=== PATIENT | male | born 1950 | race Caucasian/White ===

== ENCOUNTER 2017-10-08 14:30 | Emergency (ER) | payer BC ==
[~2017-10-08] VITALS: Ht 188 cm; Wt 122.5 kg
[~2017-10-08 14:30] MED LIST: ALEVE220 MG PO; ASPIR 8181 MG PO; CALCIUM500 MG PO; CENTRUM SILVER1 EAC2 PO; COLACE100 MG PO; COZAAR 25 MG TA25 M1 PO; DIABETA 5MG TABL5 MG PO; HUMALOG100 UNIT/1 SUBQ; INVOKANA300 MG PO; KLOR-CON 1010 MEQ PO; LANTUS SOL100 UNIT/1 SUBQ; MAGOX 400400 MG PO; METFORMIN HCL500 MG PO; MS CONTIN15 MG PO; NEURONTIN 300300 M1 PO; ONGLYZA5 MG PO; PERCOCET PO; TRAMADOL 50 MG50 MG PO; TRI-BUFFERED A325 M1 PO; TRULICITY1.5 MG/0.5 SUBQ; VITAMIN D-32000 UNIT PO; VITAMIN E400 UNIT PO; XARELTO10 MG PO; ZOCOR20 MG PO
[2017-10-08 15:18] LABS: HEMATOCRIT 34.1 % (42.0-52.0); HEMOGLOBIN 11.6 gm/dL (14.0-18.0); MCH 28.4 pg (26.0-34.0); MCHC 34.1 g/dL (28.0-37.0); MCV 83.4 fL (80.0-100.0); PLATELET COUNT 416 thou/uL (150-400); RBC 4.08 mil/uL (4.50-6.00); RDW 14.5 % (10.5-14.5); WBC 10.5 thou/uL (4.0-11.0)
[2017-10-08 15:19] LABS: MANUAL DIFF YES
[2017-10-08 15:27] LABS: CALCIUM 8.8 mg/dL (8.5-10.1); CREATININE 0.7 mg/dL (0.7-1.3); POTASSIUM 3.7 mmol/L (3.5-5.1)
[2017-10-08 15:44] LABS: ABSOLUTE NEUTROPHILS 8.3 thou/uL (1.4-8.2); METAMYELOCYTES 1 %; NUCLEATED RBCS 1 /100WBC; PLATELET ESTIMATE NORMAL; TOTAL CELL COUNT 100
== END 2017-10-08 17:00 | disposition home or self-care (01) ==
LOC: ER 14:30
PROVIDERS: Physician Assistant
DX: G89.18 Other acute postprocedural pain (principal); M71.22 Synovial cyst of popliteal space [Baker], left knee; E11.9 Type 2 diabetes mellitus without complications; E78.00 Pure hypercholesterolemia, unspecified; I10 Essential (primary) hypertension; Z98.890 Other specified postprocedural states; Z79.4 Long term (current) use of insulin

== ENCOUNTER 2021-07-05 15:13 | Emergency (ER) | payer OTHER ==
[~2021-07-05] VITALS: Ht 185.4 cm; Wt 113.4 kg
[2021-07-05 15:41] LABS: HEMATOCRIT 36.4 % (42.0-52.0); HEMOGLOBIN 12.2 gm/dL (14.0-18.0); MCH 28.4 pg (26.0-34.0); MCHC 33.7 g/dL (28.0-37.0); MCV 84.5 fL (80.0-100.0); RBC 4.31 mil/uL (4.50-6.00); RDW 14.4 % (10.5-14.5); WBC 8.7 thou/uL (4.0-11.0)
[2021-07-05 15:49] LABS: CALCIUM 8.9 mg/dL (8.5-10.1); POTASSIUM 3.8 mmol/L (3.5-5.1)
[2021-07-05] MEDS ORDERED: NORCO5 PO (17:08)
[2021-07-05] MEDS ORDERED: CEPHALEXIN500 MG PO (17:08)
[2021-07-05 17:40] VITALS: BP 175/64
--- NOTE | 2021-07-06 11:34 | EKG ---
[address] [address] [place] [address] ELECTROCARDIOGRAM REPORT Name: AQUILINO HODGSON Room #: [facility]#: [id number] Admission: 07/05/21 Attend Phys: Discharge: 07/05/21 Date of : 52 Report #: [id number] [facility] ED Test Date: 2021-07-05 Test Time: 15:41:44 Pat Name: AQUILINO HODGSON Department: Room: Gender: English Language Learner Tutor: JED : 1950 Requested By: Tawana Beltrán Order Number: [id number] MD: Santiago Moss Measurements Intervals [place] Rate: 89 P: 24 SD: 187 QRS: 18 QRSD: 97 T: 49 QT: 395 QTc: 481 Interpretive Statements Sinus rhythm Low voltage, precordial leads Borderline prolonged QT interval Compared to ECG 09/23/2017 08:29:58 Low QRS voltage now present Electronically Signed On 07-06-2021 11:34:30 CDT by Santiago Moss [email or web address] <ELECTRONICALLY SIGNED> By: Santiago Moss MD 07/06/21 1134 [id number] Santiago Moss MD /[email or web address]
== END 2021-07-05 17:40 | disposition home or self-care (01) ==
LOC: ER 15:13
PROVIDERS: Nurse Practitioner Family
DX: S61.412A Laceration without foreign body of left hand, initial encounter (principal); E11.9 Type 2 diabetes mellitus without complications; E78.00 Pure hypercholesterolemia, unspecified; I10 Essential (primary) hypertension; I73.9 Peripheral vascular disease, unspecified; I25.2 Old myocardial infarction; Z98.890 Other specified postprocedural states; Z79.82 Long term (current) use of aspirin; Z79.899 Other long term (current) drug therapy; Z79.891 Long term (current) use of opiate analgesic; Z79.4 Long term (current) use of insulin; Z79.1 Long term (current) use of non-steroidal anti-inflammatories (NSAID); W27.0XXA Contact with workbench tool, initial encounter; Y93.89 Activity, other specified; Y92.89 Other specified places as the place of occurrence of the external cause; Y99.8 Other external cause status